=== PATIENT | male | born 1955 | race Caucasian/White ===

== ENCOUNTER → 2018-07-17 | Outpatient (CLI) | payer BC ==
--- NOTE | 2018-07-17 18:06 | HKNOTE ---
DATE OF SERVICE: 07/17/2018 CHIEF COMPLAINT: Right knee pain. HISTORY OF PRESENT ILLNESS: The patient is a 63-year-old male who is complaining of chronic right kn ee pain. He has noticed the pain worsening over the last year. He does not use any assist devices. He does not take any pain medications. He has not had previous treatment. He denies history of tra camilla. He denies any locking, catching or instability. PAST MEDICAL HISTORY: Diabetes mellitus, hyperlipidemia, hypertension. MEDICATIONS 1. Metoprolol. 2. Metformin. 3. Hydrochlorothiazide. 4. Losartan. 5. Januvia. 6. Aspirin. PAST SURGICAL HISTORY: Prostatectomy, gastric bypass. ALLERGIES: 1. CEPHALEXIN. 2. BACTRIM. 3. PENICILLIN. SOCIAL HISTORY: No smoking or tobacco use. FAMILY HISTORY: No family history. PHYSICAL EXAMINATION: GAIT: Nonantalgic gait, reciprocal gait pattern. RIGHT KNEE: Neutral alignment. Tender over the medial joint line, 0 to 120 degrees range of motion, stable to varus valgus stress. Negative Senia, negative anterior drawer, negative posterior drawe r, negative Angi. X-RAYS, RIGHT KNEE: X-rays of the right knee demonstrate advanced degenerative changes of the medial compartment with [id number] contact, peripheral osteophytes. There are no fractures or dislocatio ns. IMPRESSION: A 63-year-old male with right knee advanced degenerative changes. PLAN: I discussed weight loss and low impact aerobic exercises with the patient. I also discussed i njections and physical therapy. At this time, he would like to think about his options. He will call to make an appointment if he would like to proceed in the future. Dictated By: MESSI VENTURA/THANG Conf#: [id number] DID#: [id number]
--- NOTE | 2018-07-18 13:47 | RADRPT ---
PROCEDURE: XR knee CLINICAL INDICATION: knee pain. TECHNIQUE: 4 weightbearing views of the right knee were obtained. COMPARISON: None. FINDINGS: There is no acute fracture or dislocation. Osseous structures are intact. There are moderate osteoart hritic changes of the knee, most notable at the medial tibiofemoral compartment. There is a tiny knee joint effusion. IMPRESSION: 1. Moderate osteoarthritis, most notable at the medial tibiofemoral compartment. 2. Tiny knee joint effusion. RPTAT:AAEE Physician Ml Date Time Electronically viewed and signed by Physician Ml on 07/18/2018 13:47 RM/
== END | disposition home or self-care (01) ==
LOC: HKI 16:20
PROVIDERS: ATTEND Orthopaedic Surgery Adult Reconstructive Orthopaedic Surgery
DX: M17.10 Unilateral primary osteoarthritis, unspecified knee (principal); E11.9 Type 2 diabetes mellitus without complications; E78.5 Hyperlipidemia, unspecified; I10 Essential (primary) hypertension; Z79.82 Long term (current) use of aspirin; Z88.0 Allergy status to penicillin; Z79.84 Long term (current) use of oral hypoglycemic drugs
CPT/HCPCS: 73564; G0463